=== PATIENT | female | born 1935 ===

== ENCOUNTER 2018-11-21 00:14 | Inpatient (IN) | payer OTHER ==
[~2018-11-21] VITALS: Ht 154.9 cm; Wt 58.1 kg
[~2018-11-21 00:14] MED LIST: ACCUPRIL10 MG; ANTIVERT25 MG; CAMBIA50 MG; CEFADROXIL500 MG PO; CELEBREX100 MG PO; COD LIVER OIL1 EACH PO; FOLIC ACID1 MG PO; PERCOCET 5-3251 EACH PO; PROTONIX20 MG; XARELTO10 MG PO; [UNRECOGNIZED DRUG - OTHER] PO
== END 2018-11-26 13:26 | disposition designated cancer center or children's hospital (05) | DRG 282 ==
LOC: ER 00:14 → SEC-K 14:31 → MEDI 14:31
PROVIDERS: ADMIT Internal Medicine
PROC: 4A12X4Z Monitoring of Cardiac Electrical Activity, External Approach (ICD-10-PCS; principal; 2018-11-21)
PROC: BW28ZZZ Computerized Tomography (CT Scan) of Head (ICD-10-PCS; 2018-11-21)
PROC: B246ZZZ Ultrasonography of Right and Left Heart (ICD-10-PCS; 2018-11-21)
PROC: 4A02XM4 Measurement of Cardiac Total Activity, External Approach (ICD-10-PCS; 2018-11-23)
PROC: 3E073KZ Introduction of Other Diagnostic Substance into Coronary Artery, Percutaneous Approach (ICD-10-PCS; 2018-11-23)
DX: I21.4 Non-ST elevation (NSTEMI) myocardial infarction (principal); I11.9 Hypertensive heart disease without heart failure; I25.10 Atherosclerotic heart disease of native coronary artery without angina pectoris